=== PATIENT | female | born 1955 | race African-American/Black ===

== ENCOUNTER 2017-03-26 18:32 | Emergency (ER) | payer BC ==
[~2017-03-26] VITALS: Ht 154.9 cm; Wt 99.8 kg
[~2017-03-26 18:32] MED LIST: AZIT250T PO
[2017-03-26 20:23] LABS: INFLUENZA A PATIENT NEGATIVE (NEGATIVE); INFLUENZA B PATIENT NEGATIVE (NEGATIVE)
[2017-03-26] MEDS ORDERED: IPRA15SP NS (20:30)
[2017-03-26] MEDS ORDERED: FLUT12AE IH (20:30)
--- NOTE | 2017-03-26 20:30 | PHYS DOC ---
Past History Past Medical History: Anxiety, Asthma, COPD, Hypertension, Hypothyroid Past Surgical History: Hysterectomy, Tubal ligation Alcohol Use: None Drug Use: None Adult General Chief Complaint Chief Complaint: SORE THROAT HPI HPI Patient is a 62 year old F who presents with sore throat, nasal congestion and drainage over the past 7-10 days. She feels that her symptoms of infection waiting in intensity during this time. She feels that her symptoms are associated with mildly productive cough and occasional nausea. She does not note exacerbating or alleviating factors Review of Systems Review of Systems Constitutional: She does not chills but no fevers Eyes: Denies change in visual acuity, redness, or eye pain [] HENT: Negative except history of present illness Respiratory: Denies cough or shortness of breath [] Cardiovascular: No additional information not addressed in HPI [] GI: Denies abdominal pain, nausea, vomiting, bloody stools or diarrhea [] : Denies dysuria or hematuria [] Musculoskeletal: Denies back pain or joint pain [] Integument: Denies rash or skin lesions [] Neurologic: Denies headache, focal weakness or sensory changes [] Endocrine: Denies polyuria or polydipsia [] Family History Family History Noncontributory Current Medications Current Medications Medications reviewed Allergies Allergies Allergies Coded Allergies Type Severity Reaction Last Updated Verified propoxyphene Allergy Intermediate 03/26/17 Yes Physical Exam Physical Exam Constitutional: Well developed, well nourished, no acute distress, non-toxic appearance. [] HENT: Normocephalic, atraumatic, mild nasal congestion bilaterally. Mild erythema of the posterior pharynx with mild tonsillar edema. Eyes: PERRLA, EOMI, conjunctiva normal, no discharge. [] Neck: Normal range of motion, no tenderness, supple, no stridor. [] Cardiovascular:Heart rate regular rhythm, Lungs & Thorax: Bilateral breath sounds clear to auscultation [] Abdomen: Bowel sounds normal, soft, no tenderness, no masses, no pulsatile masses. [] Skin: Warm, dry, no erythema, no rash. [] Neurologic: Alert and oriented X 3, normal motor function, normal sensory function, no focal deficits noted. [] Psychologic: Affect normal, judgement normal, mood normal. [] Current Patient Data Vital Signs Vital Signs Date Time Temp Pulse Resp B/P (MAP) Pulse Ox O2 Delivery O2 Flow Rate FiO2 03/26/17 18:32 98.8 78 18 99 Room Air Lab Results Laboratory Tests Test 03/26/17 19:04 Group A Streptococcus Rapid Negative (NEGATIVE) EKG EKG [] Radiology/Procedures Radiology/Procedures Chest x-ray - no acute disease Course & Med Decision Making Course & Med Decision Making Pertinent Labs and Imaging studies reviewed. (See chart for details) [] Dragon Disclaimer Dragon Disclaimer This chart was dictated in whole or in part using Voice Recognition software in a busy, high-work load, and often noisy Emergency Department environment. It may contain unintended and wholly unrecognized errors or omissions. Departure Departure: Impression: Primary Impression: Upper respiratory infection Additional Impression: Bronchitis Disposition: 01 HOME, SELF-CARE Condition: STABLE Referrals: MARCELINO MUNIZ MD (PCP) Patient Instructions: Acute Bronchitis, Upper Respiratory Infection, Adult Additional Instructions: Rachell was seen in the emergency department for cough and sore throat. No emergency medical condition was found on history or physical exam. She did have a normal chest x-ray. Her symptoms are most consistent with an upper respiratory infection and bronchitis. She is advised to use nasal saline rinses and nasal steroid spray. She was also given a prescription for a steroid inhaler. She was advised to return the emergency room if she develops new or worsening symptoms. She was advised follow-up with her primary care doctor as needed for further management. Scripts Fluticasone Propionate (FLOVENT 110MCG HFA) 12 Gm Aer.w.adap 2 PUFF IH BID for 7 Days, #1 INHALER 2 Refills Prov: MARCELINO LITTLEJOHN MD 03/26/17 Ipratropium Dahlgren (IPRATROPIUM BROMIDE) 15 Ml [place] 15 ML NS TID for 7 Days, SPRAY Prov: MARCELINO LITTLEJOHN MD 03/26/17 Problem Qualifiers Primary Impression: Upper respiratory infection URI type: unspecified URI Qualified Codes: J06.9 - Acute upper respiratory infection, unspecified MARCELINO LITTLEJOHN MD Mar 26, 2017 20:30
[2017-03-26 20:55] VITALS: BP 137/69
--- NOTE | 2017-03-27 08:09 | RAD ---
Chest, 2 views, 03/26/2017: History: Cough, congestion, sore throat Comparison is made to a study from 07/02/2016. The heart size and pulmonary vascularity are normal. There is mild tortuosity of the thoracic aorta. No pulmonary infiltrates are seen. There is no evidence of pleural fluid. Moderate spurring is present in the spine. IMPRESSION: No acute cardiopulmonary abnormality is detected.
== END 2017-03-26 20:55 | disposition home or self-care (01) ==
LOC: ER 18:32
DX: J06.9 Acute upper respiratory infection, unspecified (principal); J40 Bronchitis, not specified as acute or chronic; E03.9 Hypothyroidism, unspecified; J44.9 Chronic obstructive pulmonary disease, unspecified; I10 Essential (primary) hypertension; Z88.8 Allergy status to other drugs, medicaments and biological substances
CPT/HCPCS: 71020; 87070; 87804; 87880; 99285

== ENCOUNTER 2018-04-05 03:56 | Emergency (ER) | payer BC ==
[~2018-04-05] VITALS: Ht 154.9 cm; Wt 99.8 kg
[~2018-04-05 03:56] MED LIST changes: +FLUT12AE IH; +IPRA15SP NS
[2018-04-05 04:09] VITALS: BP 166/86
[2018-04-05] MEDS ORDERED: FAMOTIDINE 20 MG/2 ML VIAL IVP ONE (04:30)
[2018-04-05] MEDS ORDERED: methylPREDNISolone SOD SUCC PF 125 MG/2 ML VIAL. IV ONE (04:30)
[2018-04-05 05:04] LABS: BASO # 0.1 x10^3/uL (0.0-0.2); BASO % 1 % (0-3); EOS # 0.2 x10^3/uL (0.0-0.7); EOS % 3 % (0-3); HEMATOCRIT 35.5 % (36.0-47.0); HEMOGLOBIN 11.2 g/dL (12.0-15.5); LYMPH # 4.7 x10^3/uL (1.0-4.8); LYMPH % 60 % (24-48); MEAN CORPUSCULAR HEMOGLOBIN 22 pg (25-35); MEAN CORPUSCULAR HGB CONC 32 g/dL (31-37); MEAN CORPUSCULAR VOLUME 69 fL (79-100); MONO # 0.6 x10^3/uL (0.0-1.1); MONO % 8 % (0-9); NEUT # 2.2 x10^3uL (1.8-7.7); NEUT % 28 % (31-73); PLATELET COUNT 262 x10^3/uL (140-400); RED BLOOD COUNT 5.16 x10^6/uL (3.50-5.40); RED CELL DISTRIBUTION WIDTH 16.4 % (11.5-14.5); WHITE BLOOD COUNT 7.9 x10^3/uL (4.0-11.0)
[2018-04-05] MEDS ORDERED: FAMO-63 PO (05:17)
[2018-04-05] MEDS ORDERED: PRED50TA PO (05:17)
--- NOTE | 2018-04-05 05:23 | ED.ADGEN ---
Past History Past Medical History: Anxiety, Asthma, COPD, Hypertension, Hypothyroid Past Surgical History: Hysterectomy, Tubal ligation Alcohol Use: None Drug Use: None Adult General Chief Complaint Chief Complaint Angioedema HPI HPI Patient is a 63-year-old female presents with swelling of her tongue starting several hours prior to ED arrival. No hives or itching. Swelling began after taking Benadryl last evening for nasal congestion. Patient denies any other new medication use. She is not on lisinopril or any other SCOOTER inhibitor. Reports prior tongue swelling due to propoxyphene. No shortness of breath, wheezing, chest tightness, pharyngeal swelling. No other acute symptoms or complaints.[] Review of Systems Review of Systems Review symptoms as per history of present illness. All other review symptoms are negative. All other systems were reviewed and found to be within normal limits, except as documented in this note. Current Medications Current Medications Current Medications Medications (Trade) Dose Ordered Sig/Sagrario Start Time Stop Time Status Last Admin Dose Admin Famotidine (Pepcid Vial) 20 mg 1X ONCE 04/05/18 04:30 04/05/18 04:31 DC 04/05/18 04:47 20 MG Methylprednisolone Sodium Succinate (SOLU-Medrol 125MG VIAL) 125 mg 1X ONCE 04/05/18 04:30 04/05/18 04:31 DC 04/05/18 04:47 125 MG Allergies Allergies Allergies Coded Allergies Type Severity Reaction Last Updated Verified propoxyphene Allergy Intermediate 03/26/17 Yes Physical Exam Physical Exam Constitutional: Well developed, well nourished, no acute distress, non-toxic appearance. [] HENT: Normocephalic, atraumatic, bilateral external ears normal, oropharynx moist, sublingual swelling and sided tongue swelling,, nose normal. [] Eyes: PERRLA, EOMI, conjunctiva normal, no discharge. [] Neck: Normal range of motion, no tenderness, supple, no stridor. [] Cardiovascular:Heart rate regular rhythm, no murmur [] Lungs & Thorax: Bilateral breath sounds clear to auscultation [[] Neurologic: Alert and oriented X 3, normal motor function, normal sensory function, no focal deficits noted. [] Psychologic: Affect normal, judgement normal, mood normal. [] Current Patient Data Vital Signs Vital Signs Date Time Temp Pulse Resp B/P (MAP) Pulse Ox O2 Delivery O2 Flow Rate FiO2 04/05/18 04:09 98.4 19 100 Room Air Lab Results Laboratory Tests Test 04/05/18 04:30 White Blood Count 7.9 x10^3/uL (4.0-11.0) Red Blood Count 5.16 x10^6/uL (3.50-5.40) Hemoglobin 11.2 g/dL (12.0-15.5) L Hematocrit 35.5 % (36.0-47.0) L Mean Corpuscular Volume 69 fL (79-100) L Mean Corpuscular Hemoglobin 22 pg (25-35) L Mean Corpuscular Hemoglobin Concent 32 g/dL (31-37) Red Cell Distribution Width 16.4 % (11.5-14.5) H Platelet Count 262 x10^3/uL (140-400) Neutrophils (%) (Auto) 28 % (31-73) L Lymphocytes (%) (Auto) 60 % (24-48) H Monocytes (%) (Auto) 8 % (0-9) Eosinophils (%) (Auto) 3 % (0-3) Basophils (%) (Auto) 1 % (0-3) Neutrophils # (Auto) 2.2 x10^3uL (1.8-7.7) Lymphocytes # (Auto) 4.7 x10^3/uL (1.0-4.8) Monocytes # (Auto) 0.6 x10^3/uL (0.0-1.1) Eosinophils # (Auto) 0.2 x10^3/uL (0.0-0.7) Basophils # (Auto) 0.1 x10^3/uL (0.0-0.2) Platelet Estimate Pending EKG EKG [] Radiology/Procedures Radiology/Procedures [] Course & Med Decision Making Course & Med Decision Making Pertinent Labs and Imaging studies reviewed. (See chart for details) [Symptoms are resolved with treatment. Recommend discontinuing Benadryl and continue prednisone and Pepcid at home. Return precautions reviewed. The patient verbalizes understanding and agreement with discharge instructions prior to departure.] Final Impression Final Impression [#1 angioedema] Ingrid Disclaimer Dragon Disclaimer This electronic medical record was generated, in whole or in part, using a voice recognition dictation system. LORA NUNEZ DO Apr 05, 2018 05:23
[2018-04-05 05:49] LABS: HYPOCHROMIA SLIGHT; PLT ESTIMATE ADEQUATE (ADEQUATE)
[2018-04-05 05:50] LABS: MICROCYTOSIS MOD
== END 2018-04-05 05:38 | disposition home or self-care (01) ==
LOC: ER 03:56
DX: T78.3XXA Angioneurotic edema, initial encounter (principal); J44.9 Chronic obstructive pulmonary disease, unspecified; I10 Essential (primary) hypertension; E03.9 Hypothyroidism, unspecified; Z88.8 Allergy status to other drugs, medicaments and biological substances
CPT/HCPCS: 36415; 85025; 96374; 96375; 99284; J2930; S0028

== ENCOUNTER 2018-05-05 00:13 | Emergency (ER) | payer BC ==
[~2018-05-05] VITALS: Ht 152.4 cm; Wt 97.5 kg
[~2018-05-05 00:13] MED LIST changes: +FAMO-63 PO; +PRED50TA PO
[2018-05-05] MEDS ORDERED: ASPIRIN 81 MG TAB.CHEW PO ONE (00:30)
[2018-05-05] MEDS ORDERED: IV NORMAL SALINE 1,000ML 1,000 ML IV SCH (00:30)
--- NOTE | 2018-05-05 00:48 | PHYS DOC ---
Adult General Chief Complaint Chief Complaint Palpitation HPI HPI 63 years old female who does not take any medication at home presented to the emergency department with the palpitation happen when she stood up associated with dizziness and sudden onset of shortness of breath that resolved on its own except for palpitation remained Patient denies any chest pain, stated her dizziness symptom lasted for less than 3 minutes. She still feeling her heart going fast. No vomiting no diarrhea no bleeding per rectum no urgency no frequency no hematuria Patient stated that have not been to the doctor many years I do not take any medication right now for any problem Review of Systems Review of Systems Constitutional: Denies fever or chills [] Eyes: Denies change in visual acuity, redness, or eye pain [] HENT: Denies nasal congestion or sore throat [] Respiratory: Denies cough or shortness of breath [] Cardiovascular: No additional information not addressed in HPI [] GI: Denies abdominal pain, nausea, vomiting, bloody stools or diarrhea [] : Denies dysuria or hematuria [] Musculoskeletal: Denies back pain or joint pain [] Integument: Denies rash or skin lesions [] Neurologic: Denies headache, focal weakness or sensory changes [] Endocrine: Denies polyuria or polydipsia [] All other systems were reviewed and found to be within normal limits, except as documented in this note. Current Medications Current Medications Current Medications Medications (Trade) Dose Ordered Sig/Sagrario Start Time Stop Time Status Last Admin Dose Admin Aspirin (Children'S Aspirin) 324 mg 1X ONCE 05/05/18 00:30 05/05/18 00:58 DC 05/05/18 00:44 324 MG Info (Do NOT chart on this entry -- for MONITORING) 1 each PRN DAILY PRN 05/05/18 02:45 05/07/18 02:44 Iohexol (Omnipaque 300 Mg/ml) 75 ml 1X ONCE 05/05/18 02:45 05/05/18 02:46 DC 05/05/18 02:39 75 ML Metoprolol Tartrate (Lopressor) 50 mg 1X ONCE 05/05/18 01:00 05/05/18 01:01 DC 05/05/18 01:04 50 MG Sodium Chloride 1,000 ml @ 1,000 mls/hr Q1H 05/05/18 00:30 05/05/18 01:29 DC 05/05/18 00:44 1,000 MLS/HR Allergies Allergies Allergies Coded Allergies Type Severity Reaction Last Updated Verified propoxyphene Allergy Intermediate 03/26/17 Yes diphenhydramine Allergy Unknown 05/05/18 Yes Physical Exam Physical Exam Constitutional: Well developed, well nourished, no acute distress, non-toxic appearance. [] HENT: Normocephalic, atraumatic, bilateral external ears normal, oropharynx moist, no oral exudates, nose normal. [] Eyes: PERRLA, EOMI, conjunctiva normal, no discharge. [] Neck: Normal range of motion, no tenderness, supple, no stridor. [] Cardiovascular:Heart rate regular rhythm, tachycardia no murmur [] Lungs & Thorax: Bilateral breath sounds clear to auscultation [] Abdomen: Bowel sounds normal, soft, no tenderness, no masses, no pulsatile masses. [] Skin: Warm, dry, no erythema, no rash. [] Back: No tenderness, no CVA tenderness. [] Extremities: No tenderness, no cyanosis, no clubbing, ROM intact, no edema. [] Neurologic: Alert and oriented X 3, normal motor function, normal sensory function, no focal deficits noted. [] Psychologic: Affect normal, judgement normal, mood normal. [] Current Patient Data Vital Signs Vital Signs Date Time Temp Pulse Resp B/P (MAP) Pulse Ox O2 Delivery O2 Flow Rate FiO2 05/05/18 02:00 66 15 145/72 (96) 97 Room Air 05/05/18 00:14 98.3 Lab Results Laboratory Tests Test 05/05/18 00:27 White Blood Count 14.7 x10^3/uL (4.0-11.0) H Red Blood Count 5.19 x10^6/uL (3.50-5.40) Hemoglobin 11.1 g/dL (12.0-15.5) L Hematocrit 35.8 % (36.0-47.0) L Mean Corpuscular Volume 69 fL (79-100) L Mean Corpuscular Hemoglobin 22 pg (25-35) L Mean Corpuscular Hemoglobin Concent 31 g/dL (31-37) Red Cell Distribution Width 16.7 % (11.5-14.5) H Platelet Count 320 x10^3/uL (140-400) Neutrophils (%) (Auto) 32 % (31-73) Lymphocytes (%) (Auto) 60 % (24-48) H Monocytes (%) (Auto) 5 % (0-9) Eosinophils (%) (Auto) 1 % (0-3) Basophils (%) (Auto) 2 % (0-3) Neutrophils # (Auto) 4.6 x10^3uL (1.8-7.7) Lymphocytes # (Auto) 8.9 x10^3/uL (1.0-4.8) H Monocytes # (Auto) 0.7 x10^3/uL (0.0-1.1) Eosinophils # (Auto) 0.2 x10^3/uL (0.0-0.7) Basophils # (Auto) 0.3 x10^3/uL (0.0-0.2) H D-Dimer (Esmer) 0.54 mg/L (0.00-0.50) H Sodium Level 139 mmol/L (136-145) Potassium Level 3.9 mmol/L (3.5-5.1) Chloride Level 101 mmol/L (98-107) Carbon Dioxide Level 27 mmol/L (21-32) Anion Gap 11 (6-14) Blood Urea Nitrogen 9 mg/dL (7-20) Creatinine 1.0 mg/dL (0.6-1.0) Estimated GFR (Cockcroft-Gault) 67.5 BUN/Creatinine Ratio 9 (6-20) Glucose Level 120 mg/dL (70-99) H Calcium Level 8.5 mg/dL (8.5-10.1) Magnesium Level 2.1 mg/dL (1.8-2.4) Total Bilirubin 0.3 mg/dL (0.2-1.0) Aspartate Amino Transferase (AST) 26 U/L (15-37) Alanine Aminotransferase (ALT) 21 U/L (14-59) Alkaline Phosphatase 86 U/L (46-116) Troponin I Quantitative < 0.017 ng/mL (0-0.055) Total Protein 7.7 g/dL (6.4-8.2) Albumin 3.4 g/dL (3.4-5.0) Albumin/Globulin Ratio 0.8 (1.0-1.7) L EKG EKG [] Radiology/Procedures Radiology/Procedures [] Course & Med Decision Making Course & Med Decision Making Pertinent Labs and Imaging studies reviewed. (See chart for details) [] Final Impression Final Impression [] Problems: (1) Palpitation (2) Pneumonia Qualifiers: Qualified Codes: J18.1 - Lobar pneumonia, unspecified organism Dragon Disclaimer Dragon Disclaimer This electronic medical record was generated, in whole or in part, using a voice recognition dictation system. AKIL DELACRUZ MD May 05, 2018 00:48
--- NOTE | 2018-05-05 00:48 | EKG ---
[address] [address] Test Date: 2018-05-05 Test Time: 00:23:51 Pat Name: ROSALINDA SHAVER Department: Room: Gender: F Log Handler: : [id number] Requested By: AKIL DELACRUZ Order Number: [id number] Reading MD: Axel Foss Measurements Intervals [place] Rate: 124 P: 48 TX: 154 QRS: 34 QRSD: 82 T: 50 QT: 304 QTc: 441 Interpretive Statements SINUS TACHYCARDIA ATRIAL PREMATURE COMPLEX(ES) Electronically Signed On 05-05-2018 15:49:14 MAINTENANCE PLANNING CLERK by Axel Foss
[2018-05-05 00:51] LABS: BASO # 0.3 x10^3/uL (0.0-0.2); BASO % 2 % (0-3); EOS # 0.2 x10^3/uL (0.0-0.7); EOS % 1 % (0-3); HEMATOCRIT 35.8 % (36.0-47.0); HEMOGLOBIN 11.1 g/dL (12.0-15.5); LYMPH # 8.9 x10^3/uL (1.0-4.8); LYMPH % 60 % (24-48); MEAN CORPUSCULAR HEMOGLOBIN 22 pg (25-35); MEAN CORPUSCULAR HGB CONC 31 g/dL (31-37); MEAN CORPUSCULAR VOLUME 69 fL (79-100); MONO # 0.7 x10^3/uL (0.0-1.1); MONO % 5 % (0-9); NEUT # 4.6 x10^3uL (1.8-7.7); NEUT % 32 % (31-73); PLATELET COUNT 320 x10^3/uL (140-400); RED BLOOD COUNT 5.19 x10^6/uL (3.50-5.40); RED CELL DISTRIBUTION WIDTH 16.7 % (11.5-14.5); WHITE BLOOD COUNT 14.7 x10^3/uL (4.0-11.0)
[2018-05-05] MEDS ORDERED: METOPROLOL TART IMMED RELEASE 25 MG TABLET PO ONE (01:00)
[2018-05-05 01:02] LABS: ALBUMIN 3.4 g/dL (3.4-5.0); ALBUMIN/GLOBULIN RATIO 0.8 (1.0-1.7); CALCIUM 8.5 mg/dL (8.5-10.1); GFR 67.5; MAGNESIUM 2.1 mg/dL (1.8-2.4); TOTAL BILIRUBIN 0.3 mg/dL (0.2-1.0); TOTAL PROTEIN 7.7 g/dL (6.4-8.2)
[2018-05-05 01:04] LABS: POTASSIUM 3.9 mmol/L (3.5-5.1)
--- NOTE | 2018-05-05 01:10 | RAD ---
Chest radiograph 05/05/2018 12:18 AM INDICATION: Shortness of air, chest pain COMPARISON: March 26, 2017 TECHNIQUE: Portable upright frontal view of the chest is provided. FINDINGS: The cardiomediastinal silhouette is within normal limits. There are no pleural effusions. There is no pulmonary vascular congestion. There is no pneumothorax. The lungs are clear. No significant osseous abnormality is identified. IMPRESSION: No acute cardiopulmonary process. Electronically signed by: Leann Antonio MD (05/05/2018 1:07 AM) [facility]
[2018-05-05] MEDS ORDERED: IOHEXOL 300 MG/ML 75 ML VIAL. IV ONE (02:45)
[2018-05-05] MEDS ORDERED: CONTRAST GIVEN MC PRN (02:45)
--- NOTE | 2018-05-05 03:03 | RAD ---
PQRS Compliance Statement: One or more of the following individualized dose reduction techniques were utilized for this examination: 1. Automated exposure control 2. Adjustment of the mA and/or kV according to patient size 3. Use of iterative reconstruction technique CT angiography chest with contrast 05/05/2018 2:30 AM INDICATION: Chest pain, shortness of air and dizziness with elevated d-dimer. COMPARISON: Chest radiograph 05/05/2018 TECHNIQUE: Axial CT images of the chest were obtained after the intravenous administration of 75 cc Omnipaque 300. Coronal and sagittal reformats are provided. Maximum intensity projection images of the thoracic vasculature are provided. FINDINGS: The thyroid gland is normal in appearance. There are no pathologically enlarged axillary, mediastinal or hilar lymph nodes. The heart size is within normal limits. Trace pericardial fluid is present, likely physiologic. Thoracic aorta is normal in course and caliber. There is adequate opacification of the pulmonary arterial system. There there are no filling defects within the pulmonary arterial system to suggest acute or chronic pulmonary embolus. There are no suspicious solid noncalcified pulmonary nodules. 2 mm solid noncalcified pulmonary nodule in the anterior right upper lobe (series 4, image 58) most favors a noncalcified granuloma. Mild bronchial wall thickening. There is linear bandlike density in the left lower lobe which may represent subsegmental atelectasis versus developing infiltrate.. There are no pleural effusions. No pulmonary vascular congestion or pneumothorax. Visualized portions of the upper abdomen are within normal limits. No suspicious osseous lesions are visualized. Superior endplate Schmorl's node is identified at T11 with minimal height loss, likely chronic. IMPRESSION: There is no evidence for acute or chronic pulmonary embolism. Linear densities in the left lower lobe may represent subsegmental atelectasis versus developing infiltrate. Mild bronchial wall thickening may be seen in setting of bronchitis. Electronically signed by: Leann Antonio MD (05/05/2018 3:00 AM) [facility]
[2018-05-05] MEDS ORDERED: AMOX1TAB61 PO (03:09)
[2018-05-05] MEDS ORDERED: METO-239 PO (03:09)
[2018-05-05] MEDS ORDERED: cefTRIAXone IV Push 1 GM VIAL. IVP ONE (03:15)
[2018-05-05 04:11] VITALS: BP 132/68
== END 2018-05-05 04:20 | disposition home or self-care (01) ==
LOC: ER 00:13
DX: J18.1 Lobar pneumonia, unspecified organism (principal); R00.2 Palpitations; R42 Dizziness and giddiness; Z88.8 Allergy status to other drugs, medicaments and biological substances
CPT/HCPCS: 36415; 71045; 71275; 80053; 83735; 84484; 85025; 85379; 93005; 96361; 96374; 99284; J0696; Q9967; J7030

== ENCOUNTER 2018-08-27 18:46 | Emergency (ER) | payer BC ==
[~2018-08-27] VITALS: Ht 154.9 cm; Wt 99.8 kg
[~2018-08-27 18:46] MED LIST changes: +AMOX1TAB61 PO; +METO-239 PO
[2018-08-27 18:58] VITALS: BP 168/87
--- NOTE | 2018-08-27 19:23 | PHYS DOC ---
Past History Past Medical History: Asthma, COPD, GERD, IBS Additional Past Medical Histor: Lupus Past Surgical History: Hysterectomy Smoking: Non-smoker Alcohol Use: None Drug Use: None Adult General Chief Complaint Chief Complaint: DIFFICULTY SWALLOWING HPI HPI Pt is a 63 y/o AAF who presents to the ED for evaluation. She states that earlier today she developed nasal congestion and a non-productive cough, and she states that this causes some irritation in her throat, where she is having some trouble swallowing because of irritation in her throat. She has not had any difficulty speaking or breathing, and denies any sore throat or throat pain per say, other than the irritation. She has not had any shortness of breath, chest pain, fevers, headache, numbness, or weakness. There are no alleviating or exacerbating factors to her symptoms., Except as noted above Review of Systems Review of Systems Constitutional: Denies fever or chills [] Eyes: Denies change in visual acuity, redness, or eye pain [] HENT: No additional information not addressed in HPI [] Respiratory: Denies productive cough or shortness of breath [] Cardiovascular: The patient denies any shortness of breath, chest pain, palpitations, or orthopnea[] GI: Denies abdominal pain, nausea, vomiting, bloody stools or diarrhea [] : Denies dysuria or hematuria [] Musculoskeletal: Denies back pain or joint pain [] Integument: Denies rash or skin lesions [] Neurologic: Denies headache, focal weakness or sensory changes [] Endocrine: Denies polyuria or polydipsia [] All other systems were reviewed and found to be within normal limits, except as documented in this note. Allergies Allergies Allergies Coded Allergies Type Severity Reaction Last Updated Verified propoxyphene Allergy Intermediate 03/26/17 Yes diphenhydramine Allergy Unknown 05/05/18 Yes Physical Exam Physical Exam PHYSICAL EXAM: CONSTITUTIONAL: Well developed, well nourished HEAD: normocephalic, atraumatic EENT: PERRL, EOMI. Conjunctivae normal color, sclerae non-icteric; moist mucous membranes. Tympanic membranes are normal bilaterally. Oropharynx is nonerythematous, uvula is midline without any peritonsillar edema. NECK: Supple, non-tender; no meningismus. There is no stridor, voice is normal. LUNGS: Lungs CTA, breathing even and unlabored. Normal air movement. HEART: Regular rate and rhythm, no murmur CHEST: No deformity; non-tender ABDOMEN: The abdomen is soft, and non-tender, no masses or bruits. EXTREM: Normal ROM; no deformity, no calf tenderness. Normal pulses palpable in all extremities. There is no pedal edema. SKIN: No rash; no diaphoresis NEURO: Alert; normal speech and cognition; CN's grossly intact; strength grossly intact without focal deficit. BACK: No CVA TTP. Current Patient Data Vital Signs Vital Signs Date Time Temp Pulse Resp B/P (MAP) Pulse Ox O2 Delivery O2 Flow Rate FiO2 08/27/18 18:58 98.0 92 24 100 Room Air Lab Results Rapid strep negative EKG EKG [] Radiology/Procedures Radiology/Procedures ER physician preliminary neck soft tissue x-ray interpretation: No acute abnormality[] Course & Med Decision Making Course & Med Decision Making Pertinent Labs and Imaging studies reviewed. (See chart for details) []Patient's condition remained stable. She has an appointment with her PCP scheduled for tomorrow. I encouraged her to follow up closely, I discussed continued use of [id number] decongestants, and warm liquids. Dragon Disclaimer Dragon Disclaimer This electronic medical record was generated, in whole or in part, using a voice recognition dictation system. Departure Departure: Impression: Primary Impression: Difficulty swallowing Additional Impression: Nasal congestion Disposition: 01 HOME, SELF-CARE Condition: STABLE Referrals: MARCELINO MUNIZ MD (PCP) Patient Instructions: Sore Throat, Upper Respiratory Infection, Adult Problem Qualifiers PEYTON NYE MD Aug 27, 2018 19:23
--- NOTE | 2018-08-27 19:47 | RAD ---
EXAM: AP and lateral views of the neck with soft tissue detail DATE: 08/27/2018 7:20 PM CLINICAL HISTORY: Difficulty swallowing/throat pain, drainage, runny nose, cough COMPARISON: None FINDINGS: Views of the neck with soft tissue detail are negative for prevertebral soft tissue swelling or gas collection. The epiglottis is delicate and the aryepiglottic folds are not thickened. Visualized airway is patent. Negative definite retained radiopaque foreign body at the visualized airway or cervical esophagus. IMPRESSION: 1. Normal views of the soft tissue neck without findings for retained radiopaque foreign body or epiglottitis. 2. Specifically, no evidence of prevertebral soft tissue swelling. Electronically signed by: Mickey Webb MD (08/27/2018 7:44 PM) [facility]
== END 2018-08-27 19:42 | disposition home or self-care (01) ==
LOC: ER 18:46
DX: R13.10 Dysphagia, unspecified (principal); R09.81 Nasal congestion; J44.9 Chronic obstructive pulmonary disease, unspecified; K21.9 Gastro-esophageal reflux disease without esophagitis; K58.9 Irritable bowel syndrome, unspecified; Z88.8 Allergy status to other drugs, medicaments and biological substances
CPT/HCPCS: 70360; 87070; 87880; 99284

== ENCOUNTER 2018-09-25 00:37 | Emergency (ER) | payer BC ==
[~2018-09-25] VITALS: Ht 154.9 cm; Wt 99.8 kg
[2018-09-25 00:37] VITALS: BP 159/75
[2018-09-25] MEDS ORDERED: BENZ100C PO (01:04)
--- NOTE | 2018-09-25 01:04 | PHYS DOC ---
Past History Past Medical History: Asthma, COPD, GERD, IBS Additional Past Medical Histor: Lupus Past Surgical History: Hysterectomy Smoking: Non-smoker Alcohol Use: None Drug Use: None Adult General Chief Complaint Chief Complaint: COUGH HPI HPI 63-year-old female with past medical history of asthma presents with 2 week history of nonproductive cough with associated intermittent wheezing. Patient reports she has been following with her PCP regarding. Reports has been treating with nebulizer treatments as well as promethazine/codeine cough syrup. Patient reports she is unable to sleep due to the excessive coughing. Patient also reports now with some right-sided chest wall pain. Denies known trauma. Denies fever/chills. Patient does report previously finishing a seven-day course of steroids as well as a round of azithromycin. She denies any known sick contacts. Patient does report sensation of postnasal drip. Denies leg swelling or calf tenderness. Review of Systems Review of Systems Constitutional: Denies fever or chills [] Eyes: Denies change in visual acuity, redness, or eye pain [] HENT: Reports nasal congestion and sore throat [] Respiratory: Reports cough and shortness of breath [] Cardiovascular: Reports right-sided chest wall pain; denies pleuritic pain GI: Denies abdominal pain, nausea, vomiting, or diarrhea [] : Denies dysuria or hematuria [] Musculoskeletal: Denies back pain or leg swelling] Integument: Denies rash or skin lesions [] Neurologic: Denies headache, focal weakness or sensory changes [] Complete systems were reviewed and found to be within normal limits, except as documented in this note. Allergies Allergies Allergies Coded Allergies Type Severity Reaction Last Updated Verified propoxyphene Allergy Intermediate 03/26/17 Yes diphenhydramine Allergy Unknown 05/05/18 Yes Physical Exam Physical Exam Constitutional: Well developed, well nourished, no acute distress, non-toxic appearance. [] HENT: Normocephalic, atraumatic, oropharynx moist, pharyngeal erythema and postnasal drip; turbinates swollen Eyes: Conjunctiva normal, no discharge. [] Neck: Normal range of motion, no tenderness, supple, no stridor. [] Cardiovascular: Heart rate regular rhythm, CR < 2 sec Lungs & Thorax: Bilateral breath sounds clear; scattered wheezing; diminished at bases, right lateral chest wall tender on palpitation Abdomen: Bowel sounds normal, soft, no tenderness, no masses, no pulsatile masses. [] Skin: Warm, dry, no erythema, no rash. [] Back: No tenderness, no CVA tenderness. [] Extremities: No calves tenderness,ROM intact, no edema. [] Neurologic: Alert and oriented X 3, no focal deficits noted. [] Psychologic: Affect normal, judgement normal, mood normal. [] EKG EKG [] Radiology/Procedures Radiology/Procedures [] Course & Med Decision Making Course & Med Decision Making Patient presents with history of present illness and physical exam consistent for asthmatic bronchitis. Symptomatic treatment provided with IM Decadron. Patient also given oral Tessalon Perle. No physical exam focal signs of infectious process. Patient stable for discharge with outpatient follow-up with PCP. Discussed findings and plan with patient, who acknowledges understanding and agreement. Dragon Disclaimer Dragon Disclaimer This electronic medical record was generated, in whole or in part, using a voice recognition dictation system. Departure Departure: Impression: Primary Impression: Asthmatic bronchitis Disposition: HOME, SELF-CARE Condition: STABLE Referrals: MARCELINO MUNIZ MD (PCP) Patient Instructions: Bronchitis, [id number], Chronic Asthmatic Bronchitis Additional Instructions: Use humidifier at night when sleeping. Increase fluid hydration. May continue use of previously prescribed cough syrup. Scripts Benzonatate (TESSALON PERLE) 100 Mg Capsule 1 CAP PO TID PRN for COUGH, #30 CAP Prov: REBEKAH CAMARENA DO 09/25/18 Problem Qualifiers Primary Impression: Asthmatic bronchitis Asthma severity: moderate Asthma persistence: persistent Asthma complication type: with acute exacerbation Qualified Codes: J45.41 - Moderate persistent asthma with (acute) exacerbation REBEKAH CAMARENA DO Sep 25, 2018 01:04
[2018-09-25] MEDS ORDERED: DEXAMETHASONE SOD PHOS 10 MG/ML VIAL IM ONE (01:30)
[2018-09-25] MEDS ORDERED: BENZONATATE 100 MG CAPSULE. PO ONE (01:30)
== END 2018-09-25 01:28 | disposition home or self-care (01) ==
LOC: ER 00:37
DX: J45.41 Moderate persistent asthma with (acute) exacerbation (principal); J44.9 Chronic obstructive pulmonary disease, unspecified; K21.9 Gastro-esophageal reflux disease without esophagitis; K58.9 Irritable bowel syndrome, unspecified; Z88.8 Allergy status to other drugs, medicaments and biological substances
CPT/HCPCS: 96372; 99283; J1100

== ENCOUNTER → 2018-11-02 | Outpatient (CLI) | payer BC ==
[~2018-11-02] MED LIST changes: +BENZ100C PO
--- NOTE | 2018-11-02 16:22 | RAD ---
Thyroid ultrasound, 11/02/2018: HISTORY: Thyromegaly The right lobe of the gland measures 4.1 x 2.0 x 1.6 cm while the left lobe of the gland measures 4.0 x 1.7 x 2.0 cm. The thyroid echo pattern is mildly heterogeneous. A 10 x 9 x 7 mm smooth hypoechoic nodule is noted in the isthmus just to the right of midline. It is wider than tall. No internal calcifications are seen. A 3 mm calcification is noted along the anterior margin of the lower pole the right lobe of the gland. No associated soft tissue nodule is seen. No other focal thyroid abnormality is detected. IMPRESSION: 1. Mildly enlarged, heterogeneous thyroid gland. 2. Small nonspecific right thyroid calcification. 3. Small, smooth hypoechoic nodule at the isthmus. It does not demonstrate highly suspicious sonographic features. Ultrasound follow-up is suggested. Electronically signed by: Javy Valdez MD (11/02/2018 4:19 PM) [facility]
== END | disposition home or self-care (01) ==
LOC: US 12:49
PROVIDERS: ATTEND Nurse Practitioner Family
DX: E04.1 Nontoxic single thyroid nodule (principal); E07.89 Other specified disorders of thyroid
CPT/HCPCS: 76536

== ENCOUNTER 2019-07-09 21:31 | Emergency (ER) | payer BC ==
[~2019-07-09] VITALS: Ht 154.9 cm; Wt 100.0 kg
[2019-07-09] MEDS ORDERED: methylPREDNISolone SOD SUCC PF 125 MG/2 ML VIAL. IV ONE (22:00)
[2019-07-09] MEDS ORDERED: BENZONATATE 100 MG CAPSULE. PO ONE (22:00)
[2019-07-09] MEDS ORDERED: 0.9 % SODIUM CHLORIDE 10 ML DISP.SYRIN. IV PRN (22:00)
--- NOTE | 2019-07-09 22:05 | PHYS DOC ---
Past History Past Medical History: Asthma, COPD, GERD, IBS Additional Past Medical Histor: Lupus Past Surgical History: Hysterectomy Smoking: Non-smoker Alcohol Use: None Drug Use: None Adult General Chief Complaint Chief Complaint: COUGH HPI HPI Patient is a 64 year old female who presents with complaint of cough, congestion, and shortness of breath. The patient states her symptoms have been worsening over the past week. Notes that she was recently seen by her primary doctor and treated with amoxicillin and prednisone 3 weeks ago for treatment of respiratory infection. She states this initially started to get better, however over the past week she is concerned have worsening symptoms. Does have history of asthma states her asthma symptoms have been flaring up within the past few days. Notes continued harsh mostly nonproductive cough. Notes that she has occasionally cleared yellowish sputum at times with coughing. Notes that she is having discomfort through her chest which she attributes to her coughing. Denies any known fevers but that has been having chills and body aches. States that she last took albuterol 2 hours prior to arrival with minimal improvement symptoms. Review of Systems Review of Systems Constitutional: Chills, denies fever[] Eyes: Denies change in visual acuity, redness, or eye pain [] HENT: Postnasal drip, sore throat, nasal congestion[] Respiratory: Cough, shortness of breath[] Cardiovascular: Chest pain with cough, denies edema[] GI: Denies abdominal pain, nausea, vomiting, bloody stools or diarrhea [] : Denies dysuria or hematuria [] Musculoskeletal: Denies back pain or joint pain [] Integument: Denies rash or skin lesions [] Neurologic: Denies headache, focal weakness or sensory changes [] All other systems were reviewed and found to be within normal limits, except as documented in this note. Allergies Allergies Allergies Coded Allergies Type Severity Reaction Last Updated Verified propoxyphene Allergy Intermediate 03/26/17 Yes diphenhydramine Allergy Unknown 05/05/18 Yes Physical Exam Physical Exam Constitutional: Alert, afebrile, appears ill. [] HENT: Normocephalic, atraumatic, bilateral external ears normal, posterior phary ngeal cobblestoning consistent with postnasal drip, no oral exudates, rhinorrhea present. [] Eyes: PERRLA, EOMI, conjunctiva normal, no discharge. [] Neck: Normal range of motion, no tenderness, supple, no stridor. [] Cardiovascular: Tachycardia, regular rhythm, no murmur [] Lungs & Thorax: Tachypnea, mild accessory muscle usage present, occasional rhonchi bilaterally, no rales[] Abdomen: Bowel sounds normal, soft, no tenderness, no masses, no pulsatile masses. [] Skin: Warm, dry, no erythema, no rash. [] Back: No tenderness, no CVA tenderness. [] Extremities: No tenderness, no cyanosis, no clubbing, ROM intact, no edema. [] Neurologic: Alert and oriented X 3, normal motor function, normal sensory function, no focal deficits noted. [] Current Patient Data Vital Signs Vital Signs Date Time Temp Pulse Resp B/P (MAP) Pulse Ox O2 Delivery O2 Flow Rate FiO2 07/09/19 21:35 98.2 100 32 150/100 (117) 97 Room Air Lab Results Laboratory Tests Test 07/09/19 22:15 White Blood Count 8.1 x10^3/uL Red Blood Count 5.03 x10^6/uL Hemoglobin 11.1 g/dL Hematocrit 35.5 % Mean Corpuscular Volume 71 fL Mean Corpuscular Hemoglobin 22 pg Mean Corpuscular Hemoglobin Concent 31 g/dL Red Cell Distribution Width 15.9 % Platelet Count 251 x10^3/uL Neutrophils (%) (Auto) 35 % Lymphocytes (%) (Auto) 49 % Monocytes (%) (Auto) 5 % Eosinophils (%) (Auto) 10 % Basophils (%) (Auto) 1 % Neutrophils # (Auto) 2.8 x10^3uL Lymphocytes # (Auto) 4.0 x10^3/uL Monocytes # (Auto) 0.4 x10^3/uL Eosinophils # (Auto) 0.8 x10^3/uL Basophils # (Auto) 0.1 x10^3/uL Platelet Estimate Adequate Hypochromasia Mod Poikilocytosis Slight Anisocytosis Slight Microcytosis Mod Sodium Level 144 mmol/L Potassium Level 3.6 mmol/L Chloride Level 106 mmol/L Carbon Dioxide Level 32 mmol/L Anion Gap 6 Blood Urea Nitrogen 19 mg/dL Creatinine 1.1 mg/dL Estimated GFR (Cockcroft-Gault) 60.3 BUN/Creatinine Ratio 17 Glucose Level 101 mg/dL Lactic Acid Level 0.7 mmol/L Calcium Level 8.7 mg/dL Total Bilirubin 0.3 mg/dL Aspartate Amino Transf (AST/SGOT) 16 U/L Alanine Aminotransferase (ALT/SGPT) 20 U/L Alkaline Phosphatase 114 U/L Total Protein 7.6 g/dL Albumin 3.5 g/dL Albumin/Globulin Ratio 0.9 Influenza Type A (Rapid) Negative Influenza Type B (Rapid) Negative Current Medications Medications (Trade) Dose Ordered Sig/Sagrario Route PRN Reason Start Time Stop Time Status Last Admin Dose Admin Sodium Chloride (Normal Saline Flush) 10 ml QSHIFT PRN IV AFTER MEDS AND BLOOD DRAWS 07/09/19 22:00 Albuterol/ Ipratropium (Duoneb) 3 ml 1X ONCE NEB 07/09/19 22:15 07/09/19 22:16 DC 07/09/19 22:17 Methylprednisolone Sodium Succinate (SOLU-Medrol 125MG VIAL) 125 mg 1X ONCE IV 07/09/19 22:00 07/09/19 22:14 DC 07/09/19 22:37 Benzonatate (Tessalon Perle) 100 mg 1X ONCE PO 07/09/19 22:00 07/09/19 22:14 DC 07/09/19 22:37 Sodium Chloride 1,000 ml @ 1,000 mls/hr 1X ONCE IV 07/09/19 22:30 07/09/19 23:29 DC 07/09/19 22:38 EKG EKG Interpreted by me: Heart rate 84, sinus rhythm, normal intervals, normal axis, no acute ST/T-wave abnormalities present[] Radiology/Procedures Radiology/Procedures [address] [address] IMAGING REPORT Signed PATIENT: ROSALINDA SHAVER ACCOUNT: [id number] : 1955 LOCATION: ER AGE: 64 SEX: F EXAM STATUS: PRE ER ORD. PHYSICIAN: HELLEN CUETO MD REASON: COUGH, SHORTNESS OF BREATH. HX ASTHMA PROCEDURE: CHEST PA & LATERAL Exam: Chest 2 views INDICATION: Cough TECHNIQUE: Frontal and lateral views of the chest Comparisons: None FINDINGS: The cardiomediastinal silhouette and pulmonary vessels are within normal limits. The lung and pleural spaces are clear. IMPRESSION: No acute cardiopulmonary process. Electronically signed by: Michelle Jj MD (07/09/2019 10:12 PM) [facility] DICTATED AND SIGNED BY: MICHELLE JJ MD DATE: 07/09/192211 CC: MARCELINO MUNIZ MD; HELLEN CUETO MD ~ [] Course & Med Decision Making Course & Med Decision Making Pertinent Labs and Imaging studies reviewed. (See chart for details) The patient was given DuoNeb, IV Solu-Medrol, and Tessalon in the emergency department. Also given IV fluids. Patient reports improvement in symptoms. No evidence of pneumonia on chest x-ray and blood work suggests no evidence of sepsis. The patient appears to have an asthma exacerbation likely secondary to upper respiratory infection. At this time, the patient will be treated with prednisone taper and will be given Tessalon for continued treatment of cough symptoms. Recommended follow-up with primary doctor in the next 3-5 days for reevaluation. As patient has recently been on antibiotic therapy for treatment of infection, I recommended not reinitiating antibiotic therapy at this time. Advised return to emergency department for any worsening symptoms. Patient was understanding and in agreement with treatment plan.[] Dragon Disclaimer Dragon Disclaimer This electronic medical record was generated, in whole or in part, using a voice recognition dictation system. Departure Departure: Impression: Primary Impression: Asthma exacerbation Additional Impression: Upper respiratory infection Disposition: 01 HOME, SELF-CARE Condition: STABLE Referrals: MARCELINO MUNIZ MD (PCP) Patient Instructions: Asthma, Adult Additional Instructions: Follow-up with Dr. Muniz in the next 3-5 days for reevaluation. Return to the emergency department for any worsening symptoms. Scripts Benzonatate (TESSALON PERLE) 100 Mg Capsule 1 CAP PO TID PRN for COUGH, #30 CAP Prov: HELLEN CUETO MD 07/10/19 Prednisone (PREDNISONE) 10 Mg Tablet 10 MG PO UD for PREDNISONE TAPER, #39 TAB 0 Refills Take 3 tablets by mouth twice a day for 3 days, then take 2 tablets by mouth twice a day for 3 days, then take 1 tablet by mouth twice a day for 3 days, then take 1 tablet by mouth daily x 3 days, then stop. Prov: HELLEN CUETO MD 07/10/19 Problem Qualifiers Primary Impression: Asthma exacerbation Asthma severity: moderate Asthma persistence: persistent Qualified Codes: J45.41 - Moderate persistent asthma with (acute) exacerbation Additional Impression: Upper respiratory infection URI type: unspecified URI Qualified Codes: J06.9 - Acute upper respiratory infection, unspecified HELLEN CUETO MD Jul 09, 2019 22:05
[2019-07-09] MEDS ORDERED: IPRATRPIUM/ALBUTEROL 0.5/2.5MG 3 ML NEBU. NEB ONE (22:15)
--- NOTE | 2019-07-09 22:15 | RAD ---
Exam: Chest 2 views INDICATION: Cough TECHNIQUE: Frontal and lateral views of the chest Comparisons: None FINDINGS: The cardiomediastinal silhouette and pulmonary vessels are within normal limits. The lung and pleural spaces are clear. IMPRESSION: No acute cardiopulmonary process. Electronically signed by: Michelle Martinez MD (07/09/2019 10:12 PM) [facility]
[2019-07-09] MEDS ORDERED: IV NORMAL SALINE 1,000ML 1,000 ML IV ONE (22:30)
[2019-07-09 22:36] LABS: BASO # 0.1 x10^3/uL (0.0-0.2); BASO % 1 % (0-3); EOS # 0.8 x10^3/uL (0.0-0.7); EOS % 10 % (0-3); HEMATOCRIT 35.5 % (36.0-47.0); HEMOGLOBIN 11.1 g/dL (12.0-15.5); LYMPH % 49 % (24-48); MEAN CORPUSCULAR HEMOGLOBIN 22 pg (25-35); MEAN CORPUSCULAR HGB CONC 31 g/dL (31-37); MEAN CORPUSCULAR VOLUME 71 fL (79-100); MONO # 0.4 x10^3/uL (0.0-1.1); MONO % 5 % (0-9); NEUT # 2.8 x10^3uL (1.8-7.7); NEUT % 35 % (31-73); PLATELET COUNT 251 x10^3/uL (140-400); RED BLOOD COUNT 5.03 x10^6/uL (3.50-5.40); RED CELL DISTRIBUTION WIDTH 15.9 % (11.5-14.5); WHITE BLOOD COUNT 8.1 x10^3/uL (4.0-11.0)
[2019-07-09 22:49] LABS: CALCIUM 8.7 mg/dL (8.5-10.1); CREATININE 1.1 mg/dL (0.6-1.0); GFR 60.3; POTASSIUM 3.6 mmol/L (3.5-5.1)
[2019-07-09 22:55] LABS: ALBUMIN 3.5 g/dL (3.4-5.0); ALBUMIN/GLOBULIN RATIO 0.9 (1.0-1.7); INFLUENZA A PATIENT NEGATIVE (NEGATIVE); INFLUENZA B PATIENT NEGATIVE (NEGATIVE); TOTAL BILIRUBIN 0.3 mg/dL (0.2-1.0); TOTAL PROTEIN 7.6 g/dL (6.4-8.2)
[2019-07-09 22:57] LABS: ANISOCYTOSIS SLIGHT; HYPOCHROMIA MOD; MICROCYTOSIS MOD; PLT ESTIMATE ADEQUATE (ADEQUATE); POIKILOCYTOSIS SLIGHT
--- NOTE | 2019-07-09 23:05 | EKG ---
[address] [address] Test Date: 2019-07-09 Test Time: 22:10:14 Pat Name: ROSALINDA SHAVER Department: Room: Gender: F Transportation Program Director: : 1955 Requested By: HELLEN CUETO Order Number: [id number] Reading MD: Measurements Intervals [place] Rate: 84 P: -15 NH: 154 QRS: 5 QRSD: 82 T: 38 QT: 374 QTc: 445 Interpretive Statements SINUS RHYTHM QRS(T) CONTOUR ABNORMALITY CONSIDER ANTEROLATERAL MYOCARDIAL DAMAGE POSSIBLY ABNORMAL ECG RI6.01 No previous ECG available for comparison
[2019-07-10] MEDS ORDERED: BENZ100C PO (00:15)
[2019-07-10] MEDS ORDERED: PRED-220 PO (00:15)
[2019-07-10 00:30] VITALS: BP 129/84
== END 2019-07-10 00:40 | disposition home or self-care (01) ==
LOC: ER 21:31
DX: J45.901 Unspecified asthma with (acute) exacerbation (principal); J06.9 Acute upper respiratory infection, unspecified; K21.9 Gastro-esophageal reflux disease without esophagitis; J44.9 Chronic obstructive pulmonary disease, unspecified; Z90.710 Acquired absence of both cervix and uterus
CPT/HCPCS: 36415; 71046; 80053; 83605; 85025; 87040; 87804; 93005; 94640; 96374; 99285; J2930; J7620; J7030

== ENCOUNTER 2019-08-24 02:29 | Emergency (ER) | payer BC ==
[~2019-08-24] VITALS: Ht 152.4 cm; Wt 107.0 kg
[~2019-08-24 02:29] MED LIST changes: +PRED-220 PO
[2019-08-24] MEDS ORDERED: IPRATRPIUM/ALBUTEROL 0.5/2.5MG 3 ML NEBU. ONE (02:41)
[2019-08-24 02:52] VITALS: BP 163/97
[2019-08-24] MEDS ORDERED: FAMOTIDINE 20 MG/2 ML VIAL IVP ONE (03:15)
[2019-08-24] MEDS ORDERED: methylPREDNISolone SOD SUCC PF 125 MG/2 ML VIAL. IV ONE (03:15)
[2019-08-24] MEDS ORDERED: diphenhydrAMINE 50 MG/ML VIAL IVP ONE (03:15)
[2019-08-24] MEDS ORDERED: FAMO-63 PO (03:58)
[2019-08-24] MEDS ORDERED: PRED50TA PO (03:58)
--- NOTE | 2019-08-24 05:00 | PHYS DOC ---
Past History Past Medical History: Anxiety, Asthma, COPD, GERD, High Cholesterol, Hypertension, Hypothyroid, IBS, Other Additional Past Medical Histor: lupus Past Surgical History: Hysterectomy Additional Past Surgical Histo: salpingectomy from tubal Smoking: Non-smoker Alcohol Use: None Drug Use: None Adult General Chief Complaint Chief Complaint: TONGUE SWELLING/INJURY [facility] HPI Patient is a 64-year-old female presenting with tongue swelling. She says this is happened to her before she came here couple years ago for it. She is not on lisinopril. She says that sometimes she feels an allergic reaction to tomatoes and she did have some tomatoes earlier in the day she is also been on doxycycline for upper respiratory infection for the past several days. She says that she just feels like the tongue is swollen she could not refi she has no trouble swallowing no voice change no fainting no chest pain Review of Systems Review of Systems Constitutional: Denies fever or chills [] Eyes: Denies change in visual acuity, redness, or eye pain [] HENT: Recently treated for bronchitis though symptoms are improving Cardiovascular: No additional information not addressed in HPI [] GI: Denies abdominal pain, nausea, vomiting, bloody stools or diarrhea [] : Denies dysuria or hematuria [] Musculoskeletal: Denies back pain or joint pain [] Integument: Denies rash or skin lesions [] Neurologic: Denies headache, focal weakness or sensory changes [] Endocrine: Denies polyuria or polydipsia [] All other systems were reviewed and found to be within normal limits, except as documented in this note. Current Medications Current Medications Current Medications Medications (Trade) Dose Ordered Sig/Sagrario Start Time Stop Time Status Last Admin Dose Admin Albuterol/ Ipratropium (Duoneb) 3 ml STK-MED ONCE 08/24/19 02:41 08/24/19 02:41 DC Diphenhydramine HCl (Benadryl) 25 mg 1X ONCE 08/24/19 03:15 08/24/19 03:16 DC 08/24/19 03:12 25 MG Famotidine (Pepcid Vial) 20 mg 1X ONCE 08/24/19 03:15 08/24/19 03:16 DC 08/24/19 03:12 20 MG Methylprednisolone Sodium Succinate (SOLU-Medrol 125MG VIAL) 125 mg 1X ONCE 08/24/19 03:15 08/24/19 03:16 DC 08/24/19 03:12 125 MG Allergies Allergies Allergies Coded Allergies Type Severity Reaction Last Updated Verified propoxyphene Allergy Intermediate 03/26/17 Yes Physical Exam Physical Exam Constitutional: Well developed, well nourished, no acute distress, non-toxic appearance. [] HENT: Normocephalic, atraumatic, there is some sublingual edema is mild the posterior oropharynx and uvula are normal. There is some segmental again mild edema of the tongue left and right side Eyes: PERRLA, EOMI, conjunctiva normal, no discharge. [] Neck: Normal range of motion, no tenderness, supple, no stridor. [] Cardiovascular:Heart rate regular rhythm, no murmur [] Lungs & Thorax: Bilateral breath sounds clear to auscultation [] faint wheezing cleared after neb Abdomen: Bowel sounds normal, soft, no tenderness, no masses, no pulsatile masses. [] Skin: Warm, dry, no erythema, no rash. [] Back: No tenderness, no CVA tenderness. [] Extremities: No tenderness, no cyanosis, no clubbing, ROM intact, no edema. [] Neurologic: Alert and oriented X 3, normal motor function, normal sensory function, no focal deficits noted. [] Psychologic: Affect normal, judgement normal, mood normal. [] Current Patient Data Vital Signs Vital Signs Date Time Temp Pulse Resp B/P (MAP) Pulse Ox O2 Delivery O2 Flow Rate FiO2 08/24/19 02:52 98.2 100 18 163/97 (119) 98 Room Air EKG EKG [] Radiology/Procedures Radiology/Procedures [] Course & Med Decision Making Course & Med Decision Making Pertinent Labs and Imaging studies reviewed. (See chart for details) [] Angioedema of unclear etiology overall symptoms are mild patient received steroids and Benadryl in the emergency room on reevaluation the swelling had gone down somewhat she was feeling better lungs were clear saturation normal no stridor. I think she is okay for outpatient management I gave her strict return precautions to come back for any worsening symptoms at all. Etiology could be tomatoes it could be hereditary could be doxycycline I recommended she stop doxycycline for now avoid all tomatoes and follow-up with primary care doctor for further testing as needed. Of note she is not on an SCOOTER inhibitor. Ingrid Disclaimer Manuelon Disclaimer This electronic medical record was generated, in whole or in part, using a voice recognition dictation system. Departure Departure: Impression: Primary Impression: Angioedema Disposition: 01 HOME, SELF-CARE Condition: STABLE Patient Instructions: Angioedema, [id number] Additional Instructions: please take benadryl and prednisone. return immediately for worsening swelling, trouble swallowing or breathing. stop your antibiotics. dont eat tomatoes. Scripts Famotidine (PEPCID) 20 Mg Tablet 1 TAB PO BID for allergic reaction, #30 TAB 3 Refills Prov: KINA CARRERA MD 08/24/19 Prednisone (PREDNISONE) 50 Mg Tablet 1 TAB PO DAILY for angioedema, #5 TAB Prov: KINA CARRERA MD 08/24/19 KINA CARRERA MD Aug 24, 2019 05:00
== END 2019-08-24 04:10 | disposition home or self-care (01) ==
LOC: ER 02:29
DX: T78.3XXA Angioneurotic edema, initial encounter (principal); E78.00 Pure hypercholesterolemia, unspecified; I10 Essential (primary) hypertension; E03.9 Hypothyroidism, unspecified; K58.9 Irritable bowel syndrome, unspecified; Z90.710 Acquired absence of both cervix and uterus; Z98.890 Other specified postprocedural states; Z88.6 Allergy status to analgesic agent
CPT/HCPCS: 96374; 96375; 99284; J1200; J2930; J3490

== ENCOUNTER 2020-10-06 04:09 | Emergency (ER) | payer BC ==
[~2020-10-06] VITALS: Ht 152.4 cm; Wt 107.0 kg
--- NOTE | 2020-10-06 04:26 | PHYS DOC ---
Past History Past Medical History: Anxiety, Asthma, COPD, GERD, High Cholesterol, Hypertension, Hypothyroid, IBS, Other Additional Past Medical Histor: lupus Past Surgical History: Hysterectomy Additional Past Surgical Histo: salpingectomy from tubal Smoking: Non-smoker Alcohol Use: None Drug Use: None General Adult EDM: Chief Complaint: ALLERGIC REACTION HPI: HPI: " My tongue swelled up on Rt. side again... the only thing new to me is I had some hot sauce on chicken tonight,,,, and I do frequently finishing up taking some antibiotics he gave me for bronchitis.." Patient is a 65 year old female who presents with above hx and complaints of edema to on side of her tongue. Patient periodically has swelling on right side of tongue. Review of records shows that patient last episode of swelling on her right side of tongue was after tomato sauce and starting on doxycycline for an upper respiratory infection. Patient checked with family and currently she is again on doxycycline. No recent travel. No specific ill contacts. Denies any problems with respiration. Denies any problems with speech. Patient does have some edema on right side of her tongue as when she had episode in 08/24/2019. Patient denies any history of lisinopril use. Patient states her conduit helper took her off that drug sometime ago because concerns of angioedema. Patient has past medical history of anxiety, asthma, COPD, GERD, elevated cholesterol, hypertension, hypothyroidism, IBS, lupus, and seasonal allergies. Pt. follow s with Dr. Rivera. Review of Systems: Review of Systems: Constitutional: Denies fever or chills Eyes: Denies change in visual acuity HENT: Denies nasal congestion or sore throat. Patient has complains of swelling right-sided tongue. Respiratory: Denies cough or shortness of breath Cardiovascular: Denies chest pain or edema GI: Denies abdominal pain, nausea, vomiting, bloody stools or diarrhea : Denies dysuria Musculoskeletal: Denies back pain or joint pain Integument: Denies rash Neurologic: Denies headache, focal weakness or sensory changes Endocrine: Denies polyuria or polydipsia Lymphatic: Denies swollen glands Psychiatric: Denies depression or anxiety Family History: Family History: Noncontributory Current Medications: Current Meds: See nursing for home meds Allergies: Allergies: Allergies Coded Allergies Type Severity Reaction Last Updated Verified propoxyphene Allergy Intermediate 03/26/17 Yes Physical Exam: PE: Constitutional: no acute distress, non-toxic appearance. [] HENT: Normocephalic, atraumatic, bilateral external ears normal, oropharynx moist, no oral exudates, nose normal. Does have some edema on the right side of tongue. Eyes: PERRLA, EOMI, conjunctiva normal, no discharge. [] Neck: Normal range of motion, no tenderness, supple, no stridor. [] Cardiovascular:Heart rate regular rhythm, no murmur [] Lungs & Thorax: Bilateral breath sounds equal apex with scattered wheezes on auscultation [] Abdomen: Bowel sounds normal, soft, no tenderness, no masses, no pulsatile masses. [Obese. Skin: Warm, dry, no erythema, no rash. [] Back: No tenderness, no CVA tenderness. [] Extremities: No tenderness, no cyanosis, no clubbing, ROM intact, no edema. [] Neurologic: Alert and oriented X 3, normal motor function, normal sensory function, no focal deficits noted. [] Psychologic: Affect anxious, judgement normal, mood normal. [] Current Patient Data: Vital Signs: Vital Signs Date Time Temp Pulse Resp B/P (MAP) Pulse Ox O2 Delivery O2 Flow Rate FiO2 10/06/20 04:19 97.8 84 18 163/94 (117) 99 Room Air EKG: EKG: [] Radiology/Procedures: Radiology/Procedures: [] Heart Score: C/O Chest Pain: N/A Risk Factors: Risk Factors: DM, Current or recent (<one month) smoker, HTN, HLP, family history of CAD, obesity. Risk Scores: Score 0 - 3: 2.5% MACE over next 6 weeks - Discharge Home Score 4 - 6: 20.3% MACE over next 6 weeks - Admit for Clinical Observation Score 7 - 10: 72.7% MACE over next 6 weeks - Early Invasive Strategies Course & Med Decision Making: Course & Med Decision Making Pertinent Labs and Imaging studies reviewed. (See chart for details) Patient stop the use of doxycycline. Patient use her home breathing treatments 4 times a day. Patient take Pepcid 20 twice a day. Patient take prednisone 50 mg daily for 5 days. Pt. to take Benadryl 50 mg 4 x day. Patient follow-up with Dr. Rivera. Patient return if any concerns. Patient consider adding doxycycline to allergy list and this may be delayed drug reaction. Since this i s the only common factor that was present on previous episode on 08/24/2019. Pt. Rt sided tongue edema, markedly improved at 06:30. Discussed options with pt. Pt. elects to be discharged home. Impression: 1. Angioedema to Rt side of tongue [] Dragon Disclaimer: Dragon Disclaimer: This electronic medical record was generated, in whole or in part, using a voice recognition dictation system. Departure Departure: Referrals: MARCELINO RIVERA MD (PCP) Scripts Famotidine (PEPCID) 20 Mg Tablet 20 MG PO BID for allergy for 10 Days, #20 TAB Prov: LORETTA BOLTON MD 10/06/20 Prednisone (PREDNISONE) 50 Mg Tablet 50 MG PO DAILY for allergic rx for 5 Days, #5 TAB Prov: LORETTA BOLTON MD 10/06/20 LORETTA BOLTON MD Oct 06, 2020 04:26
[2020-10-06] MEDS ORDERED: FAMO-63 PO (04:52)
[2020-10-06] MEDS ORDERED: PRED50TA PO (04:52)
[2020-10-06] MEDS ORDERED: methylPREDNISolone SOD SUCC PF 125 MG/2 ML VIAL. IV ONE (05:00)
[2020-10-06] MEDS ORDERED: FAMOTIDINE 20 MG/2 ML VIAL IVP ONE (05:00)
[2020-10-06 06:16] VITALS: BP 137/68
== END 2020-10-06 06:30 | disposition home or self-care (01) ==
LOC: ER 04:09
DX: T78.3XXA Angioneurotic edema, initial encounter (principal); F41.9 Anxiety disorder, unspecified; J44.9 Chronic obstructive pulmonary disease, unspecified; K21.9 Gastro-esophageal reflux disease without esophagitis; E78.00 Pure hypercholesterolemia, unspecified; I10 Essential (primary) hypertension; E03.9 Hypothyroidism, unspecified; K58.9 Irritable bowel syndrome, unspecified; Z90.710 Acquired absence of both cervix and uterus; Z88.8 Allergy status to other drugs, medicaments and biological substances
CPT/HCPCS: 96374; 96375; 99284; J2930; J3490

== ENCOUNTER 2021-02-18 05:20 | Emergency (ER) | payer BC ==
[~2021-02-18] VITALS: Ht 152.4 cm; Wt 108.9 kg
--- NOTE | 2021-02-18 06:11 | PHYS DOC ---
Past History Past Medical History: Anxiety, Asthma, COPD, GERD, High Cholesterol, Hypertension, Hypothyroid, IBS, Other Additional Past Medical Histor: lupus Past Surgical History: Other Additional Past Surgical Histo: salpingectomy from tubal Smoking: Non-smoker Alcohol Use: None Drug Use: None General Adult EDM: Chief Complaint: FACE PROBLEM HPI: HPI: 65-year-old female presents with facial swelling. The patient woke up early this morning and felt like the right side of her facial swelling. She has had t his before. It typically starts with tongue and then expands to her face. Today she can tell that her lips and right side of her cheek are swollen and the right side of her tongue is starting to swell. She denies any difficulty breathing or swallowing. She has had this happen in the past with no official diagnosis. She is not on SCOOTER inhibitors. She has never had to be intubated for this. No changes in medications. No new exposures. She is allergic to tomatoes but has not come in contact with any. She denies fever or chills. Review of Systems: Review of Systems: Constitutional: Denies fever or chills Eyes: Denies change in visual acuity HENT: Facial swelling Respiratory: Denies cough or shortness of breath Cardiovascular: Denies chest pain or edema GI: Denies abdominal pain, nausea, vomiting, bloody stools or diarrhea : Denies dysuria Musculoskeletal: Denies back pain or joint pain Integument: Denies rash Neurologic: Denies headache, focal weakness or sensory changes Endocrine: Denies polyuria or polydipsia Lymphatic: Denies swollen glands Psychiatric: Denies depression or anxiety Allergies: Allergies: Allergies Coded Allergies Type Severity Reaction Last Updated Verified propoxyphene Allergy Intermediate 03/26/17 Yes Physical Exam: PE: Constitutional: Well developed, well nourished, no acute distress, non-toxic appearance. [] HENT: Normocephalic, atraumatic, bilateral external ears normal, oropharynx moist, no oral exudates, nose normal. Swelling of the lips, right cheek, right side of tongue. [] Eyes: PERRLA, EOMI, conjunctiva normal, no discharge. [] Neck: Normal range of motion, no tenderness, supple, no stridor. [] Cardiovascular:Heart rate regular rhythm, no murmur [] Lungs & Thorax: Bilateral breath sounds clear to auscultation [] Abdomen: Bowel sounds normal, soft, no tenderness, no masses, no pulsatile masses. [] Skin: Warm, dry, no erythema, no rash. Right-sided facial swelling, normal skin color. [] Back: No tenderness, no CVA tenderness. [] Extremities: No tenderness, no cyanosis, no clubbing, ROM intact, no edema. [] Neurologic: Alert and oriented X 3, normal motor function, normal sensory function, no focal deficits noted. [] Psychologic: Affect normal, judgement normal, mood normal. [] Current Patient Data: Vital Signs: Vital Signs Date Time Temp Pulse Resp B/P (MAP) Pulse Ox O2 Delivery O2 Flow Rate FiO2 02/18/21 05:29 98.3 72 20 136/70 98 Room Air EKG: EKG: [] Radiology/Procedures: Radiology/Procedures: [] Heart Score: C/O Chest Pain: N/A Risk Factors: Risk Factors: DM, Current or recent (<one month) smoker, HTN, HLP, family history of CAD, obesity. Risk Scores: Score 0 - 3: 2.5% MACE over next 6 weeks - Discharge Home Score 4 - 6: 20.3% MACE over next 6 weeks - Admit for Clinical Observation Score 7 - 10: 72.7% MACE over next 6 weeks - Early Invasive Strategies Course & Med Decision Making: Course & Med Decision Making Pertinent Labs and Imaging studies reviewed. (See chart for details) The patient's presentation is consistent with angioedema. She is not on an SCOOTER inhibitor. This does not appear to be allergic reaction. She denies pruritus. I will treat her with 50 mg of Benadryl and 125 Solu-Medrol. The patient's labs are unremarkable. The patient feels like the swelling is starting to improve. Her tongue is getting smaller and it is easier for her to open her mouth. On reexamination, I agree that her face is less swollen and her tongue has decreased. She feels comfortable going home at this time. If her condition worsens in any way she will return to the emergency room. She is stable for discharge at this time. [] Dragon Disclaimer: Dragon Disclaimer: This electronic medical record was generated, in whole or in part, using a voice recognition dictation system. Departure Departure: Impression: Primary Impression: Angioedema Qualified Codes: T78.3XXA - Angioneurotic edema, initial encounter Disposition: HOME / SELF CARE / HOMELESS Condition: IMPROVED Referrals: MARCELINO MUNIZ MD (PCP) Patient Instructions: Angioedema, [id number] Scripts Prednisone (PREDNISONE) 10 Mg Tablet 10 MG PO UD for PREDNISONE TAPER, #21 TAB 0 Refills Take 5 tablets by mouth daily for 2 days, then take 3 tablets by mouth daily for 2 days, then take 2 tablet by mouth daily for 2 days, then take 1 tablet by mouth daily for 1 day, then stop. Prov: LORA ALVAREZ DO 02/18/21 LORA ALVAREZ DO Feb 18, 2021 06:11
[2021-02-18] MEDS ORDERED: diphenhydrAMINE 50 MG/ML VIAL IVP ONE (06:15)
[2021-02-18] MEDS ORDERED: IV NORMAL SALINE 1,000ML 1,000 ML IV ONE (06:15)
[2021-02-18] MEDS ORDERED: methylPREDNISolone SOD SUCC PF 125 MG/2 ML VIAL. IV ONE (06:15)
[2021-02-18] MEDS ORDERED: diphenhydrAMINE 50 MG/ML VIAL ONE (06:15)
[2021-02-18 07:27] VITALS: BP 140/68
[2021-02-18 07:27] LABS: BASO # 0.1 x10^3/uL (0.0-0.2); BASO % 1 % (0-3); EOS # 0.1 x10^3/uL (0.0-0.7); EOS % 1 % (0-3); HEMATOCRIT 36.1 % (36.0-47.0); HEMOGLOBIN 11.1 g/dL (12.0-15.5); LYMPH # 3.3 x10^3/uL (1.0-4.8); LYMPH % 27 % (24-48); MEAN CORPUSCULAR HEMOGLOBIN 22 pg (25-35); MEAN CORPUSCULAR HGB CONC 31 g/dL (31-37); MEAN CORPUSCULAR VOLUME 72 fL (79-100); MONO # 0.3 x10^3/uL (0.0-1.1); MONO % 2 % (0-9); NEUT # 8.4 x10^3uL (1.8-7.7); NEUT % 69 % (31-73); PLATELET COUNT 260 x10^3/uL (140-400); RED BLOOD COUNT 5.01 x10^6/uL (3.50-5.40); RED CELL DISTRIBUTION WIDTH 16.4 % (11.5-14.5); WHITE BLOOD COUNT 12.2 x10^3/uL (4.0-11.0)
[2021-02-18 07:33] LABS: CALCIUM 8.1 mg/dL (8.5-10.1); GFR 67.1; POTASSIUM 3.7 mmol/L (3.5-5.1)
[2021-02-18 07:40] LABS: ALBUMIN/GLOBULIN RATIO 0.8 (1.0-1.7); TOTAL BILIRUBIN 0.2 mg/dL (0.2-1.0); TOTAL PROTEIN 6.9 g/dL (6.4-8.2)
[2021-02-18] MEDS ORDERED: PRED-220 PO (07:53)
[2021-02-18 07:57] LABS: HYPOCHROMIA SLIGHT; MICROCYTOSIS SLIGHT; PLT ESTIMATE ADEQUATE (ADEQUATE)
[2021-02-18 07:58] LABS: OVALOCYTES OCC; TEAR DROP CELLS OCC
== END 2021-02-18 07:59 | disposition home or self-care (01) ==
LOC: ER 05:20
DX: T78.3XXA Angioneurotic edema, initial encounter (principal); F41.9 Anxiety disorder, unspecified; J44.9 Chronic obstructive pulmonary disease, unspecified; K21.9 Gastro-esophageal reflux disease without esophagitis; E78.00 Pure hypercholesterolemia, unspecified; I10 Essential (primary) hypertension; E03.9 Hypothyroidism, unspecified; K58.9 Irritable bowel syndrome, unspecified; Z88.8 Allergy status to other drugs, medicaments and biological substances
CPT/HCPCS: 36415; 80053; 85025; 96361; 96374; 96375; 99284; J1200; J2930; J7030

== ENCOUNTER 2021-03-13 23:46 | Emergency (ER) | payer BC ==
[~2021-03-13] VITALS: Ht 152.4 cm; Wt 107.7 kg
--- NOTE | 2021-03-14 00:58 | PHYS DOC ---
Past History Past Medical History: Anxiety, Asthma, COPD, GERD, High Cholesterol, Hypertension, Hypothyroid, IBS, Other Additional Past Medical Histor: lupus Past Surgical History: Other Additional Past Surgical Histo: salpingectomy from tubal Smoking: Non-smoker Alcohol Use: None Drug Use: None Adult General Chief Complaint Chief Complaint: CONGESTION HPI HPI Patient is a 65-year-old female with a past medical history significant for COPD and asthma who presents with a couple days of nasal congestion and cough. Denies any recent traumas, travels, illnesses, fevers, actual chest pain, abdominal pain, nausea, vomiting, dysuria, hematuria, blood in the stool or diarrhea. Denies any known ill contacts. States she had not taken any medications. Review of Systems Review of Systems Review of systems otherwise unremarkable except noted in HPI Allergies Allergies Allergies Coded Allergies Type Severity Reaction Last Updated Verified propoxyphene Allergy Intermediate 03/26/17 Yes Physical Exam Physical Exam Constitutional: Well developed, well nourished, no acute distress, non-toxic appearance. [] HENT: Normocephalic, atraumatic, bilateral external ears normal, oropharynx moist, no oral exudates, nose normal. [] Eyes: PERRLA, EOMI, conjunctiva normal, no discharge. [] Neck: Normal range of motion, no tenderness, supple, no stridor. [] Cardiovascular:Heart rate regular rhythm, no murmur [] Lungs & Thorax: Bilateral breath sounds clear to auscultation [] Abdomen: Bowel sounds normal, soft, no tenderness, no masses, no pulsatile masses. [] Skin: Warm, dry, no erythema, no rash. [] Back: No tenderness, no CVA tenderness. [] Extremities: No tenderness, no cyanosis, no clubbing, ROM intact, no edema. [] Neurologic: Alert and oriented X 3, normal motor function, normal sensory function, no focal deficits noted. [] Psychologic: Affect normal, judgement normal, mood normal. [] EKG EKG [] Radiology/Procedures Radiology/Procedures [] Heart Score C/O Chest Pain: No Risk Factors: Risk Factors: DM, Current or recent (<one month) smoker, HTN, HLP, family history of CAD, obesity. Risk Scores: Risk Factors: DM, Current or recent (<one month) smoker, HTN, HLP, family history of CAD, obesity. Course & Med Decision Making Course & Med Decision Making Patient is a 65-year-old female with COPD and asthma who presents with cough and chest congestion Vital signs notable for hypertension. Physical exam noted above. Chest x-ray not concerning. Given breathing treatment and Afrin. Discussed all findings with patient. Advised to take asthma medications at home as prescribed. Advised to call primary care physician in the morning first thing Advised to come back to the ED with new or concerning symptoms. Patient grateful, verbalized understanding and agreed with plan of discharge. Dragon Disclaimer Dragon Disclaimer This electronic medical record was generated, in whole or in part, using a voice recognition dictation system. Departure Departure: Impression: Primary Impression: Congestion of nasal sinus Additional Impression: Asthma exacerbation Disposition: HOME / SELF CARE / HOMELESS Condition: GOOD Referrals: MARCELINO MUNIZ MD (PCP) Patient Instructions: Asthma Attacks, Prevention, Asthma, Adult Additional Instructions: Thanks for coming in the emergency department tonight and allowing us to take care of you. Please read the attached information carefully to go over what we discussed. Please take your asthma medications at home as prescribed. Please call your primary care physician first thing in the morning to update on ED visit and set up a follow-up for soon as possible. Please come back to the ED with new or concerning symptoms as discussed. Problem Qualifiers TI RUBIO MD Mar 14, 2021 00:58
--- NOTE | 2021-03-14 01:28 | RAD ---
EXAM: AP View of the chest DATE: 03/14/2021 12:57 AM INDICATION: Reason: cough / Spl. Instructions: / History: COMPARISON: 07/09/2019 05/05/2018 FINDINGS: The heart is not enlarged. Aorta is tortuous. No focal parenchymal airspace opacity. No pleural effusion or pneumothorax. IMPRESSION: 1. No radiographic evidence for acute cardiopulmonary process. Electronically signed by: Mickey Webb MD (03/14/2021 1:25 AM) [facility]
[2021-03-14] MEDS ORDERED: ACETAMINOPHEN 500 MG TABLET PO ONE (01:30)
[2021-03-14] MEDS ORDERED: DEXAMETHASONE 4 MG TABLET PO ONE (01:30)
[2021-03-14] MEDS ORDERED: OXYMETAZOLINE 0.05% NASAL SPRAY 30ML BOTTLE. NS ONE (01:30)
[2021-03-14] MEDS ORDERED: IPRATRPIUM/ALBUTEROL 0.5/2.5MG 3 ML NEBU. NEB ONE (01:30)
[2021-03-14 02:39] VITALS: BP 165/97
== END 2021-03-14 02:43 | disposition home or self-care (01) ==
LOC: ER 23:46
DX: J45.901 Unspecified asthma with (acute) exacerbation (principal); J44.9 Chronic obstructive pulmonary disease, unspecified; K21.9 Gastro-esophageal reflux disease without esophagitis; E78.00 Pure hypercholesterolemia, unspecified; I10 Essential (primary) hypertension; E03.9 Hypothyroidism, unspecified; K58.9 Irritable bowel syndrome, unspecified; Z88.8 Allergy status to other drugs, medicaments and biological substances
CPT/HCPCS: 71045; 94640; 99284; J8540

== ENCOUNTER 2021-03-18 19:20 | Emergency (ER) | payer BC ==
[~2021-03-18] VITALS: Ht 152.4 cm; Wt 108.3 kg
[2021-03-18 19:32] VITALS: BP 157/69
[2021-03-18] MEDS ORDERED: METH4TAB2 PO (19:36)
--- NOTE | 2021-03-18 19:41 | PHYS DOC ---
Past History Past Medical History: Anxiety, Asthma, COPD, GERD, High Cholesterol, Hypertension, Hypothyroid, IBS, Other Additional Past Medical Histor: Lupus (AMAN RAMIREZ APRN) Past Surgical History: Hysterectomy, Tubal ligation Additional Past Surgical Histo: salpingectomy from tubal (AMAN RAMIREZ APRN) Smoking: Non-smoker Alcohol Use: None Drug Use: None (AMAN RAMIREZ APRN) General Adult EDM: Chief Complaint: CONGESTION HPI: HPI: Patient is a 66-year-old female who presents to the ER for nasal drainage, postnasal drainage, left ear pain started today. Patient states that she has been taking Flonase, Zyrtec and Mucinex without any relief. She states that she would like a steroid Dosepak because that usually helps her when she has the symptoms. She denies any sick exposures, fever, sore throat, loss of taste or smell. She is vaccinated for COVID-19. (AMAN RAMIREZ APRN) Review of Systems: Review of Systems: 14 body systems of the review of systems have been reviewed. See HPI for pertinent positive and negative responses, otherwise all other systems are negative, nonpertinent or noncontributory (AMAN RAMIREZ APRN) Allergies: Allergies: Allergies Coded Allergies Type Severity Reaction Last Updated Verified propoxyphene Allergy Intermediate 03/26/17 Yes (AMAN RAMIREZ APRN) Physical Exam: PE: Constitutional: Well developed, well nourished, no acute distress, non-toxic appearance. [] HENT: Normocephalic, atraumatic, bilateral external/internal ears normal, oropharynx moist, no oral exudates, nose normal, cobblestoning, postnasal drainage, mildly erythematous pharynx, no tonsillar enlargement or exudate, patient maintaining secretions, uvula midline, no trismus. [] Eyes: PERRL, EOMI, conjunctiva normal, no discharge. [] Neck: Normal range of motion, no stridor Cardiovascular: Normal peripheral perfusion Lungs & Thorax: Normal work of breathing, no tachypnea Abdomen: Obese, soft Skin: Warm, dry, no erythema, no rash. [] Back: Normal range of motion Extremities: No tenderness, no cyanosis, no clubbing, ROM intact, no edema. [] Neurologic: Alert and oriented X 3, normal motor function, normal sensory function, no focal deficits noted. [] Psychologic: Affect normal, judgement normal, mood normal. [] (AMAN RAMIREZ APRN) EKG: EKG: [] (AMAN RAMIREZ APRN) Radiology/Procedures: Radiology/Procedures: [] (AMAN RAMIREZ APRN) Heart Score: C/O Chest Pain: N/A Risk Factors: Risk Factors: DM, Current or recent (<one month) smoker, HTN, HLP, family history of CAD, obesity. Risk Scores: Score 0 - 3: 2.5% MACE over next 6 weeks - Discharge Home Score 4 - 6: 20.3% MACE over next 6 weeks - Admit for Clinical Observation Score 7 - 10: 72.7% MACE over next 6 weeks - Early Invasive Strategies (AMAN RAMIREZ APRN) Course & Med Decision Making: Course & Med Decision Making Pertinent Labs and Imaging studies reviewed. (See chart for details) [] Patient is a 66-year-old female being seen in the ER for left ear pain, nasal drainage. Physical exam shows cobblestoning in the back of patient's pharynx with postnasal drainage. Patient states that she has been using Zyrtec, Flonase and Mucinex. Patient is requesting a steroid Dosepak because she usually gets prescribed that when she has the symptoms and it improves her symptoms. Patient is not a diabetic. Patient is afebrile. I discussed with patient all findings and diagnostic testing as well as the need to follow-up with PCP for further evaluation and treatment or return to the ER if any new or worsening symptoms. Strict return precautions were also discussed at length. Patient voiced understanding and agreement with the plan. Patient is hemodynamically stable at the time of disposition. (AMAN RAMIREZ APRN) Course & Med Decision Making I was the Attending physician on the above date of service of this patient. This patient was evaluated, examined, treated, and dispositioned from the emergency department by the mid-level practitioner. Although I was working at the time , no assistance was requested. Electronically signed, Cynthia Birmingham DO (CYNTHIA BIRMINGHAM DO) Ingrid Disclaimer: Ingrid Disclaimer: This electronic medical record was generated, in whole or in part, using a voice recognition dictation system. (AMAN RAMIREZ APRN) Departure Departure: Impression: Primary Impression: Allergic rhinitis Qualified Codes: J30.9 - Allergic rhinitis, unspecified Disposition: HOME / SELF CARE / HOMELESS Condition: GOOD Referrals: MARCELINO MUNIZ MD (PCP) Patient Instructions: Allergic Rhinitis Additional Instructions: You were seen in the ER today for left-sided ear pain and postnasal drainage. You can continue taking your Flonase, Zyrtec and Mucinex at home. You are being discharged home with a steroid Dosepak. Please take this as directed. Follow- up with your primary care provider tomorrow as previously scheduled. For your ear pain you can take Tylenol and ibuprofen at home. Return to the ER if you develop shortness of breath, difficulty swallowing, high fevers refractory to treatment or any new or worsening concerns. EMERGENCY DEPARTMENT GENERAL DISCHARGE INSTRUCTIONS Thank you for coming to [facility] (ED) today and trusting us with you care. We trust that you had a positivie experience in our Emergency Department. If you wish to speak to the department management, you may call the director at [phone]. YOUR FOLLOW UP INSTRUCTIONS ARE FOLLOWS: 1. Do you have a private Doctor? If you do not have a private doctor, please ask for a resource list of physicians or clinics that may be able to assist you with follow up care. 2. The Emergency Physician has interpreted your x-rays. The X-Ray specialist will also review them. If there is a change in the findings, you will be notified in 48 hours when at all possible. 3. A lab test or culture has been done, your results will be reviewed and you will be notified if you need a change in treatment. ADDITIONAL INSTRUCTIONS AND INFORMATION: 1. Your care today has been supervised by a physician who is specially trained in emergency care. Many problems require more than one evaluation for a complete diagnosis and treatment. We recommend that you schedule your follow up appointment as recommended to ensure complete treatment of you illness or injury. If you are unable to obtain follow up care and continue to have a problem, or if your condition worsens, we recommend that you return to the ED. 2. We are not able to safely determine your condition over the phone nor are we able to give sound medical advice over the phone. For these safety reasons, if you call for medical advice we will ask you to come to the ED for further evaluation. 3. If you have any questions regarding these discharge instructions please call the ED at [phone]. SAFETY INFORMATION: In the interest of safety, wellness, and injury prevention; we encourage you to wear your sealbelt, if you smoke; quite smoking, and we encourage family to use a protective helmet for bicycling and other sporting events that present an increased risk for head injury. IF YOUR SYMPTOMS WORSEN OR NEW SYMPTOMS DEVELOP, OR YOU HAVE CONCERNS ABOUT YOUR CONDITION; OR IF YOUR CONDITION WORSENS WHILE YOU ARE WAITING FOR YOUR FOLLOW UP APPOINTMENT; EITHER CONTACT YOUR PRIMARY CARE DOCTOR, THE PHYSICIAN WHOSE NAME AND NUMBER YOU WERE GIVEN, OR RETURN TO THE ED IMMEDIATELY. Scripts Methylprednisolone (MEDROL) 4 Mg Tab.ds.pk 1 PKG PO UD for sinus congestion, #1 PKG 0 Refills Prov: AMAN RAMIREZ APRN 03/18/21 AMAN RAMIREZ APRN Mar 18, 2021 19:41 CYNTHIA BIRMINGHAM DO Mar 18, 2021 20:19
[2021-03-18] MEDS ORDERED: predniSONE 20 MG TABLET PO ONE (20:00)
[2021-03-18] MEDS ORDERED: predniSONE 20 MG TABLET ONE (20:05)
== END 2021-03-18 21:00 | disposition home or self-care (01) ==
LOC: ER 19:20
DX: J30.9 Allergic rhinitis, unspecified (principal); F41.9 Anxiety disorder, unspecified; J44.9 Chronic obstructive pulmonary disease, unspecified; K21.9 Gastro-esophageal reflux disease without esophagitis; E78.00 Pure hypercholesterolemia, unspecified; I10 Essential (primary) hypertension; E03.9 Hypothyroidism, unspecified; K58.9 Irritable bowel syndrome, unspecified; Z88.8 Allergy status to other drugs, medicaments and biological substances
CPT/HCPCS: 99283; J7512

== ENCOUNTER 2021-10-16 05:58 | Emergency (ER) | payer BC ==
[~2021-10-16] VITALS: Ht 152.4 cm; Wt 108.0 kg
[~2021-10-16 05:58] MED LIST changes: +METH4TAB2 PO
--- NOTE | 2021-10-16 06:22 | PHYS DOC ---
Past History Past Medical History: Anxiety, Asthma, COPD, GERD, High Cholesterol, Hypertension, Hypothyroid, IBS, Other Additional Past Medical Histor: Lupus Past Surgical History: Other Additional Past Surgical Histo: salpingectomy from tubal Smoking: Non-smoker Alcohol Use: None Drug Use: None General Adult EDM: Chief Complaint: ALLERGIC REACTION HPI: HPI: 66-year-old female presents with tongue swelling. The patient has a history of intermittent spontaneous angioedema. She states that she woke up at 3 AM with a tingling sensation in her tongue. When she gets a sensation a usually indicates that she is getting swelling of the tongue. She took her 40 mg of Pepcid, 20 mg of prednisone, and Benadryl. She noticed that the right side of her tongue is swollen. When this happens she gets nervous and comes to the emergency room just in case. She has had a full work-up by her primary physician and specialist. There are no noted specific allergies or final cause of why this happens. She tells me it happens 4-6 times a year. She is not having any difficulty breathing or swallowing. She has no other complaints at this time. Review of Systems: Review of Systems: Constitutional: Denies fever or chills Eyes: Denies change in visual acuity HENT: Tongue swelling Respiratory: Denies cough or shortness of breath Cardiovascular: Denies chest pain or edema GI: Denies abdominal pain, nausea, vomiting, bloody stools or diarrhea : Denies dysuria Musculoskeletal: Denies back pain or joint pain Integument: Denies rash Neurologic: Denies headache, focal weakness or sensory changes Endocrine: Denies polyuria or polydipsia Lymphatic: Denies swollen glands Psychiatric: Denies depression or anxiety Allergies: Allergies: Allergies Coded Allergies Type Severity Reaction Last Updated Verified propoxyphene Allergy Intermediate 03/26/17 Yes Physical Exam: PE: Constitutional: Well developed, well nourished, obese, no acute distress, non- toxic appearance. [] HENT: Normocephalic, atraumatic, bilateral external ears normal, oropharynx moist, right half of tongue swollen compared to left, no airway obstruction. [] Eyes: PERRLA, EOMI, conjunctiva normal, no discharge. [] Neck: Normal range of motion, no tenderness, supple, no stridor. [] Cardiovascular: Heart rate regular rhythm, no murmur [] Lungs & Thorax: Bilateral breath sounds clear to auscultation [] Abdomen: Bowel sounds normal, soft, no tenderness, no masses, no pulsatile masses. [] Skin: Warm, dry, no erythema, no rash. [] Back: No tenderness, no CVA tenderness. [] Extremities: No tenderness, no cyanosis, no clubbing, ROM intact, no edema. [] Neurologic: Alert and oriented X 3, normal motor function, normal sensory function, no focal deficits noted. [] Psychologic: Affect normal, judgement normal, mood normal. [] EKG: EKG: [] Radiology/Procedures: Radiology/Procedures: [] Heart Score: C/O Chest Pain: N/A Risk Factors: Risk Factors: DM, Current or recent (<one month) smoker, HTN, HLP, family history of CAD, obesity. Risk Scores: Score 0 - 3: 2.5% MACE over next 6 weeks - Discharge Home Score 4 - 6: 20.3% MACE over next 6 weeks - Admit for Clinical Observation Score 7 - 10: 72.7% MACE over next 6 weeks - Early Invasive Strategies Course & Med Decision Making: Course & Med Decision Making Pertinent Labs and Imaging studies reviewed. (See chart for details) The patient is having no difficulty breathing. She was able to talk to me answer all my questions without any sign of stress. We discussed the option of adding IM Decadron to the prednisone she already took. She would prefer to do this and I believe it is reasonable. I have given her 4 mg of Decadron IM. We will observe the patient for least another hour to make sure she does not have any worsening of her condition. The patient has had no complications. She is stable for discharge at this time. I have provided her a prednisone taper prescription in case she needs it at a future date. [] Dragon Disclaimer: Dragon Disclaimer: This electronic medical record was generated, in whole or in part, using a voice recognition dictation system. Departure Departure: Impression: Primary Impression: Angioedema Disposition: HOME / SELF CARE / HOMELESS Condition: STABLE Referrals: MARCELINO MUNIZ MD (PCP) Patient Instructions: Angioedema, [id number] Scripts Prednisone (PREDNISONE) 10 Mg Tablet 10 MG PO UD for PREDNISONE TAPER, #24 TAB 0 Refills Take 4 tablets by mouth daily for 3 days, then take 3 tablets by mouth daily for 2 days, then take 2 tablet by mouth daily for 2 days, then take 1 tablet by mouth daily for 2 days, then stop. Prov: LORA ALVAREZ DO 10/16/21 LORA ALVAREZ DO October 16, 2021 06:22
[2021-10-16] MEDS: DEXAMETHASONE SOD PHOS 4 MG/ML VIAL. IM ONE (06:24)
[2021-10-16 08:00] VITALS: BP 158/80
[2021-10-16] MEDS ORDERED: PRED-220 PO (08:10)
== END 2021-10-16 08:00 | disposition home or self-care (01) ==
LOC: ER 05:58
DX: T78.3XXA Angioneurotic edema, initial encounter (principal); F41.9 Anxiety disorder, unspecified; J44.9 Chronic obstructive pulmonary disease, unspecified; K21.9 Gastro-esophageal reflux disease without esophagitis; E78.00 Pure hypercholesterolemia, unspecified; I10 Essential (primary) hypertension; E03.9 Hypothyroidism, unspecified; Z88.8 Allergy status to other drugs, medicaments and biological substances
CPT/HCPCS: 96372; 99283; J1100